=== PATIENT | female | born 2000 | race Caucasian/White ===

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

== ENCOUNTER 2019-01-01 11:31 | Emergency (ER) | payer OTHER ==
[~2019-01-01] VITALS: Ht 170.2 cm; Wt 56.7 kg
[2019-01-01 11:31] VITALS: BP_SYST 110
--- NOTE | 2019-01-01 11:31 | NUR ---
BROUGHT BACK TO BED #8 AND TRIAGED. REPORT GIVEN TO JEAN
--- NOTE | 2019-01-01 11:42 | NUR ---
PATIENT CAME IN COMPLAINING OF URINARY BURNING FOR PAST 2 WEEKS. PATIENT COMPLAINING OF LOWER ABD PAIN 7/10 SHARP. PATIENT STATES SHE USES RESTROOM AND STILL FEELS LIKE SHE HAS TO GO AFTER. PATIENT STATES SHE HAS BEEN TAKING AZO WITH NO RELIEF. PATIENT DENIES [place], VOMITING, AND SOB. PATIENT IS ALERT AND ORIENTED X4.
--- NOTE | 2019-01-01 11:52 | NUR ---
ER Dr. DE LA VEGA at bedside examining patient.
--- NOTE | 2019-01-01 12:10 | NUR ---
Pelvic exam performed by Dr. Gar with Daisy GOMEZ at bedside for entire examination. Patient tolerated procedure well. Patient assisted to position of comfort after examination. Specimen collected by Dr. Gar and sent to lab.
[2019-01-01 13:10] VITALS: BP_SYST 116
--- NOTE | 2019-01-01 13:11 | NUR ---
Patient given written and verbal discharge instructions and verbalizes understanding. ER MD discussed with patient the results and treatment provided. Patient in stable condition. ID arm band removed. Rx of CIPRO, NAPROXEN given. Patient educated on pain management and to follow up with PMD. Pain Scale 0/10. Opportunity for questions provided and answered. Medication side effect fact sheet provided.
[2019-01-04 00:07] LABS: CHLAMYDIA TRACHOMATIS NAA Negative (Negative); NEISSERIA GONORRHOEAE NAA Negative (Negative)
== END 2019-01-01 13:11 | disposition home or self-care (01) ==
LOC: SED 11:31
DX: N39.0 Urinary tract infection, site not specified (principal); Z88.8 Allergy status to other drugs, medicaments and biological substances
CPT/HCPCS: 81002; 81025; 87210-TC; 87491; 87591; 99283

== ENCOUNTER 2019-01-26 10:48 | Emergency (ER) | payer OTHER ==
[~2019-01-26] VITALS: Ht 170.2 cm; Wt 55.3 kg
[2019-01-26 10:57] VITALS: BP_SYST 115
--- NOTE | 2019-01-26 11:15 | NUR ---
Patient is awake, alert, and oriented x4. Patient reports lower abdominal pain and spotting after having sex on Saturday. Patient also reports nausea and diarrhea.
--- NOTE | 2019-01-26 11:58 | NUR ---
ER Dr. Vargas at bedside examining patient.
[2019-01-26 12:38] VITALS: BP_SYST 110
--- NOTE | 2019-01-26 12:38 | NUR ---
Patient given written and verbal discharge instructions and verbalizes understanding. ER MD discussed with patient the results and treatment provided. Patient in stable condition. ID arm band removed. Patient educated on pain management and to follow up with PMD. Pain Scale 0/10. Opportunity for questions provided and answered. Medication side effect fact sheet provided.
== END 2019-01-26 12:38 | disposition home or self-care (01) ==
LOC: SED 10:48
DX: N93.8 Other specified abnormal uterine and vaginal bleeding (principal); R03.0 Elevated blood-pressure reading, without diagnosis of hypertension; Z88.8 Allergy status to other drugs, medicaments and biological substances
CPT/HCPCS: 81002; 81025; 99282